=== PATIENT | female | born 1960 | race Caucasian/White ===

== ENCOUNTER 2016-09-02 17:35 | Emergency (ER) | payer OTHER ==
--- NOTE | ~2016-09-02 | EKG ---
PATIENT: MAXINE CASTELLANOS UNIT #: [id number] Ventricular Rate: 77 BPM Atrial Rate: 77 BPM P-R Interval: 148 ms QRS Duration: 76 ms Q-T Interval: 382 ms QTC Calculation(Bezet): 432 ms P [place]: 51 degrees Calculated R [place]: 64 degrees Calculated T [place]: 57 degrees Diagnosis Line: Normal sinus rhythm Diagnosis Line: Normal ECG Diagnosis Line: Diagnosis Line: Confirmed by ALMA ROY MD ([id number]) on 09/05/2016 Diagnosis Line: 12:00:12 PM INTERPRETING MD: MANUELA LAN
--- NOTE | ~2016-09-02 | CR63 ---
[facility]. [facility] A Service of [facility] RADIOLOGY TEXT RESULTS PATIENT: MAXINE CASTELLANOS LOCATION: SED : 64 UNIT #: [id number] AGE: [address]: Iglesia Valdovinos SEX: F ORDER DR: [id number] [address] [address] [id number] MR#: [id number] Acc #: [id number] NAME: MAXINE CASTELLANOS. : 1960 SEX: F STUDY DATE/TIME: 09/02/2016 18:36 UNIT: SED ROOM: STUDY DESCRIPTION: CR Chest 2 View Attending Physician: Iglesia Valdovinos P.A.-C. Ordering Physician: Iglesia Valdovinos P.A.-C. Primary Care Physician: Roma Johnson M.D. MEDICAL IMAGING REPORT This report is preliminary unless electronic signature is present. EXAM 2 views chest 09/02/2016 HISTORY Chest pain. Began Friday night. Nausea, vomiting, diarrhea, headache. FINDINGS PA and lateral radiographs of the chest are presented. Comparison 04/01/2009, 08/26/2007 and 09/11/2007. No acute-appearing bony abnormality. The heart and mediastinum are normal in size and contour. The lungs are well inflated bilaterally, without evidence of acute infectious or inflammatory disease. No pleural effusion or pneumothorax. There is a 9-mm density superimposed over the right lung apex, at level of anterior right first rib. This is more conspicuous than on prior examinations. Given appearance and location, I favor that it is calcification associated with the anterior right first rib. I cannot exclude true pulmonary nodule though this is felt less likely. It is not clearly seen on the lateral view. Clarification by repeat examination with AP lordotic view recommended. If not clearly demonstrated to be calcification associated with right first rib, then CT assessment would be warranted to evaluate for true pulmonary nodule. Surgical clips in the upper abdomen probably from prior cholecystectomy. Correlate with surgical history. Dictated by... Iglesia Godfrey M.D. THIS IS AN ELECTRONICALLY VERIFIED REPORT Iglesia Godfrey M.D. at 09/03/2016 10:21 PM JSK/psc STS. [facility] A Service of [facility] & [facility] RADIOLOGY TEXT RESULTS PATIENT: MAXINE CASTELLANOS LOCATION: SED : 64 UNIT #: [id number] AGE: [address]: Iglesia Valdovinos PAC SEX: F ORDER DR: TD: 09/02/2016 23:25 JOB #: [id number] MEDICAL IMAGING REPORT Page 1 of 1
[~2016-09-02 17:35] MED LIST: CELECOXIB200 MG; DESYREL50 MG; VITAMIN D400 UNI2; VIVELLE-DOT1 EAC1; ZOLOFT
[2016-09-02 18:30] LABS: BASOPHIL# 0.1 X10e3 (0-0.3); BASOPHIL% 1.1 % (0-2.5); EOSINOPHIL# 0.1 X10e3 (0-0.7); EOSINOPHIL% 1.3 % (0.0-7.0); HEMATOCRIT 41.1 % (35.0-45.0); HEMOGLOBIN 13.7 gm/dL (12.0-16.0); LYMPHOCYTE# 2.3 X10e3 (1.0-3.5); LYMPHOCYTE% 24.1 % (17.0-45.0); MEAN CELL VOLUME 93.7 FL (83-96); MEAN CORPUSCULAR HEMOGLOBIN 31.2 PG (28-34); MEAN CORPUSCULAR HGB CONC 33.2 g/dL (30-36); MONOCYTE# 0.6 X10e3 (0-1.0); MONOCYTE% 6.5 % (3.0-12.0); NEUTROPHIL# 6.5 X10e3 (1.5-7.1); PLATELET COUNT 355 X10e3 (140-420); RED BLOOD COUNT 4.38 X10e (3.90-5.30); RED CELL DISTRIBUTION WIDTH 13.3 % (11.0-15.5); WHITE BLOOD COUNT 9.7 X10e3 (4.0-10.5)
[2016-09-02 18:35] LABS: DIFF IND NO
[2016-09-02 18:48] LABS: ALBUMIN SERUM 4.7 g/dL (3.5-5.0); BILIRUBIN, DIRECT 0.2 mg/dL (0.0-0.2); BILIRUBIN,INDIRECT 0.3 mg/dL (0.0-0.9); BILIRUBIN,TOTAL 0.5 mg/dL (0.2-2.0); BUN/CREATININE RATIO 27.14; CALCIUM SERUM 9.9 mg/dL (8.4-10.2); CREATININE SERUM 0.7 mg/dL (0.6-1.4); GLOM FILT RATE Estimated 98.2 mL/min (>60); POTASSIUM 3.6 mmol/L (3.5-5.1); PROTEIN TOTAL SERUM 8.3 g/dL (6.0-8.3)
[2016-09-02 18:49] LABS: POC - CKMB <1.0 ng/mL (0.0-7.9)
[2016-09-02 18:50] LABS: POC - TROPONIN <0.05 ng/mL (<=0.05)
[2016-09-02 19:58] LABS: URINE SOURCE CLEAN CATCH
[2016-09-02 20:00] LABS: URINE APPEARANCE CLEAR; URINE BILIRUBIN NEG (NEG); URINE BLOOD NEG (NEG); URINE COLOR YELLOW; URINE GLUCOSE NEG (NORM); URINE KETONE NEG (NEG); URINE LEUKOCYTE ESTERASE NEG (NEG); URINE NITRATE NEG (NEG); URINE PROTEIN NEG (NEG); URINE UROBILINOGEN 0.2 MG/DL (NORM)
[2016-09-02 20:01] LABS: MICRO INDICATED? NO
== END 2016-09-02 21:32 | disposition home or self-care (01) ==
LOC: SED 17:35
PROVIDERS: Physician Assistant
DX: R07.89 Other chest pain (principal); R11.2 Nausea with vomiting, unspecified; I10 Essential (primary) hypertension; Z90.710 Acquired absence of both cervix and uterus; Z98.51 Tubal ligation status; Z88.8 Allergy status to other drugs, medicaments and biological substances
CPT/HCPCS: 36415; 71020; 80048; 80076; 81003; 82553; 83690; 84484; 85025; 93005; 96361; 96374; 96375; 99284; J1885; J2405